=== PATIENT | female | born 1945 ===

== ENCOUNTER 2022-08-29 06:26 | Day surgery (SDC) | payer MEDICARE, SELFPAY ==
--- NOTE | 2022-08-29 06:25 | ANES.PREOP_ITS ---
General Info Date of Service Date Performed: 08/29/22 Height: 5 ft 2 in Weight: 74 kg Body Mass Index (BMI): 29.8 Surgical Procedure: Operation Date: 08/29/22 07:40 Proposed Procedure Side Surgeon p Cataract Extraction with IOL Implant Right Saul Manzano MD Meds Allergies and Home Medications Allergies Allergy/AdvReac Type Severity Reaction Status Date / Time No Known Allergies Allergy Unverified 08/29/22 07:02 Home Medication Medication Instructions Recorded acetaminophen 325 mg tablet 325 mg PO Q6H PRN 08/25/22 amlodipine 2.5 mg tablet 2.5 mg PO DAILY 08/25/22 amlodipine 5 mg tablet 5 mg PO DAILY 08/25/22 ascorbic acid (vitamin C) 500 mg 500 mg PO DAILY 08/25/22 tablet (Vitamin C) aspirin 325 mg tablet 325 mg PO DAILY 08/25/22 cholecalciferol (vitamin D3) 50 50 mcg PO DAILY 08/25/22 mcg (2,000 unit) tablet (Vitamin D3) docusate sodium 100 mg tablet 200 mg PO BID 08/25/22 omega-3 fatty acids 1 cap PO DAILY 08/25/22 oxycodone 5 mg tablet 5 mg PO Q6H PRN 08/25/22 rosuvastatin 10 mg tablet 10 mg PO DAILY 08/25/22 naproxen sodium 220 mg tablet 220 mg PO Q8H 08/29/22 (Aleve) Current Visit Medications: Current Medications Generic Name Dose Route Start Last Admin Trade Name Freq PRN Reason Stop Dose Admin Acetaminophen 1,000 mg 08/29/22 06:00 Acetaminophen 500 Mg Tab PO Q4H PRN PRN Miscellaneous Medication 0 ml 08/29/22 06:00 Prednisolone 1%, Moxifloxacin 0.5%, Nepafenac 0.1% 5ml Btl OD DIRECTED YENNY Miscellaneous Medication 0 ml 08/29/22 06:00 Tropicam./Phenyleph. (1/2.5%) 5 Ml Btl OD DIRECTED YENNY Tetracaine HCl 0 ml 08/29/22 06:00 Tetracaine 0.5% 4 Ml Btl OD DIRECTED YENNY PFSH Active Problems Active Problems: Problem Status Onset Code Nuclear sclerotic cataract of right eye H25.11 Medical History Medical History Arthritis of right knee Hypertension Inflamed seborrheic keratosis Surgical History Surgical History (Updated 08/29/22 @ 07:01 by Shalonda Masters) History of excision of lesion [facility] of tonsillectomy History of tubal ligation Uterine polyp Excision Tobacco Smoking/Tobacco Use Status: Never Alcohol Alcohol Intake: never Substance Use Substance use: Never Substance use type: does not use Vital Signs and Lab Results Vital Signs Most Recent Vital Signs in EMR: Temp Pulse Resp BP Pulse Ox 36.7 C 65 16 155/68 H 99 08/29/22 07:07 08/29/22 07:07 08/29/22 07:07 08/29/22 07:07 08/29/22 07:07 Lab Results Blood Type / Crossmatch: No Data to Display Complete Blood Count: No Data to Display Complete Metabolic Panel: No Data to Display Liver Function Panel: No Data to Display Coagulation Panel: No Data to Display Cardiac Panel: No Data to Display Arterial Blood Gas: No Data to Display Venous Blood Gas: No Data to Display Pancreas Panel: No Data to Display Thyroid Panel: No Data to Display Infectious Disease: No Data to Display Blood Cultures: No Data to Display Toxicology Panel: No Data to Display Anesthesia Assessment and Plan Anesthesia History Personal History: No History of Anesthesia Complications Family History: No Family History of Anesthesia Complications Exercise Tolerance Exercise Tolerance: Metabolic Equivalents>4 Cardiac & Pulmonary Exam Cardiac Exam: Heart Murmur Present Pulmonary Exam: Clear Bilateral Breath Sounds Implantable Cardiac Device Does patient have a Pacemaker or an ICD?: No Airway Exam Known Difficult Airway: No Mallampati Class: 3 Mouth Opening: Normal (> 3cm) Thyromental Distance: Greater than 3 cm Neck Range of Motion: Limited ROM Neck Circumference: Normal Teeth Condition: Normal Dentition ASA Classification ASA Score: ASA 3 Emergency Case?: No NPO Status NPO Status: NPO Clears >2 hours, Solids >8 hours Anesthesia Plan Resuscitation Status: Full Code Anesthesia Technique: MAC Anesthesia Airway Planned: Natural Airway Monitors Used: Standard Monitors Preoperative Comments:: 77 f for cataract removal. Sig PMHx: HTN (amlodipine), never smoker, never EtOH. Has decent murmur, denies having an echo or workup for it recently. She did just recently have a TKA without issues. I discussed with her that she should have an ECHO if she has not prior to any additional general anesthetics that she may have.
[2022-08-29] MEDS: Tropicam./Phenyleph. (1/2.5%) 5 ML BTL OD ×3 (07:00→07:16)
[2022-08-29 07:07] VITALS: BP 155/68; PULSE 65; RESP 16; TEMP 36.7; O2SAT 99
[2022-08-29 07:29] VITALS: BMI 29.8
[2022-08-29] MEDS: Lidocaine 1% Pres-Free 5 ML VIAL (07:37)
[2022-08-29] MEDS: Balanced Salt Soln.-PLUS 500 ML BAG (07:40)
[2022-08-29] MEDS: Lidocaine 2% Jelly 6 ML SYR (07:41)
[2022-08-29] MEDS: Povidone-Iodine Ophth 30 ML BTL (07:41)
[2022-08-29] MEDS: Duovisc Viscoelastic System EACH 1 EACH (07:41)
[2022-08-29] MEDS: Tetracaine 0.5% 4 ML BTL OD (07:43)
[2022-08-29 08:02] VITALS: BP 146/73; PULSE 70; RESP 16; TEMP 36.6; O2SAT 100
--- NOTE | 2022-08-29 08:02 | W.PM.DSUDISC ---
Date of service: 08/29/22 Time of Service: 08:03 Discharge Plan Disposition Patient Disposition: Home Condition: Good Discharge Details Attending Provider: Saul Manzano Primary Care Provider: Holden Rebollar Home Meds and New Rx's Prescriptions: No Action acetaminophen 325 mg Tablet 325 mg PO Q6H PRN aspirin 325 mg Tablet 325 mg PO DAILY amlodipine 2.5 mg Tablet 2.5 mg PO DAILY amlodipine 5 mg Tablet 5 mg PO DAILY ascorbic acid (vitamin C) [Vitamin C] 500 mg Tablet 500 mg PO DAILY docusate sodium 100 mg Tablet 200 mg PO BID oxycodone 5 mg Tablet 5 mg PO Q6H PRN Fish Oil Capsule 1 cap PO DAILY rosuvastatin 10 mg Tablet 10 mg PO DAILY cholecalciferol (vitamin D3) [Vitamin D3] 50 mcg (2,000 unit) Tablet 50 mcg PO DAILY naproxen sodium [Aleve] 220 mg Tablet 220 mg PO Q8H Discharge Instructions Stand Alone Forms: Post-op Topical Cataract, Neville Gee (DSU) Discharge Orders Discharge Orders: Discharge Order (Routine); Ordered 08/29/22 Ordered By: Saul Manzano DS: Diagnosis Discharge Diagnosis (1) Nuclear sclerotic cataract of right eye: Status: Resolved
--- NOTE | 2022-08-29 08:03 | ROE_ITS ---
Date of service: 08/29/22 Time of Service: 08:03 Operative Note Operative Note DATE OF PROCEDURE: 08/29/22 PRE-OP DIAGNOSIS: Nuclear cataract, right eye POST-OP DIAGNOSIS: same PROCEDURE: Cataract extraction using phacoemulsification with intraocular lens implant, right eye SURGEON: Saul Manzano ANESTHESIA TYPE: Local By Surgeon and MAC Refer to Anesthesia Record ESTIMATED BLOOD LOSS: 0 PATHOLOGY: none sent COMPLICATIONS: None Patient was transported to: same day Patient's condition: stable Implants: Clovis & Clovis/ELKE Tecnis [id number] Indications: Progressive visual loss due to cataract, right eye Procedure Description: CATARACT SURGERY OPERATIVE REPORT PREOPERATIVE DIAGNOSIS: 1. Dense nuclear cataract, right eye POSTOPERATIVE DIAGNOSIS: Same OPERATION: 1. Cataract extraction using phacoemulsification with posterior chamber intraocular lens implant, right eye. IOL: IOL Cotton Tier/Model: Clov[employer] & Clovis / ELKE Tecnis [id number] IOL Power: + 20.5 diopters IOL Serial Number: [id number] Optic Diameter: 6.0mm Haptic/Overall Diameter: 13.0mm PHACO INFO: LamontStarMaker Interactiveon Vision System with OZil and Active Fluidics Cumulative Dispersed Energy (CDE): 30.18 seconds SURGEON: Saul Manzano MD, ELVIE ANESTHESIA: Monitored [facility] (MAC), with local sub-tenon's anesthetic infiltration COMPLICATIONS: None SPECIMENS: None INDICATIONS FOR PROCEDURE: The patient is a 77-year-old lady with history of diminished visual acuity in her right eye secondary to the development of dense nuclear cataract. The option of cataract surgery was offered to the patient and she felt she was symptomatic enough that she wished to proceed. PROCEDURE: The correct surgical eye was identified and marked as the right eye and the pupil was dilated in the preoperative area using mydriatics and cycloplegics. The dilated pupil size was 6.0 mm. The patient elected to proceed without oral sedation. The patient was brought to the operating room where cardiopulmonary monitoring was instituted and surgical time-out was performed, confirming the correct operative eye and IOL power. Topical anesthesia was administered and ophthalmic povidone-iodine 5% was instilled into the conjunctival fornices. Lidocaine gel was applied to the cornea and the liz-ocular area was prepped with Betadine 10% solution and draped in the usual sterile fashion for intraocular surgery, including an aperture drape. A Tegaderm transparent film dressing was cut in half and used to cover the lashes and lid margins. Care was taken to sequester the lashes and lid margins under the Tegaderm dressing. A lid speculum was placed between the lids of the operative eye and the Lamont LuxOR Revalia operating microscope was maneuvered into position. Donovan scissors were then used to make a conjunctival buttonhole approximately 6mm posterior to the limbus in the inferonasal quadrant. Blunt dissection was carried out to expose bare sclera, and a blunt-tipped sub-tenon?s anesthesia cannula was introduced and passed posteriorly along the globe where non- preserved plain lidocaine was injected into posterior sub-Tenon?s space. A sideport knife was used to make a paracentesis port inferotemporally. Intraocular phenylephrine/lidocaine was injected into the anterior chamber. The anterior chamber was filled with viscoelastic. A keratome knife was used to construct a 2-plane near-clear corneal tunnel extending 2.0mm into clear cornea superiortemporally. A flap was raised on the anterior capsule and capsulorhexis forceps were used to complete a continuous curvilinear capsulorhexis of 5.0 mm. Balanced salt solution was then used to perform cortical cleaving hydrodissection and nuclear hydrodelineation until the lens could be freely rotated within the capsular bag. The lens nucleus was then disassembled and removed within the capsular bag and iris plane using phacoemulsification. Residual cortical material was removed using the I/A handpiece. The posterior capsule was carefully polished to remove as much residual lens epithelial cells as safely possible. The capsular bag was then inflated and the anterior chamber deepened with viscoelastic. The lens implant described above was inserted into the capsular bag using the ELKE [place] Injector. A Kuglen hook was used to dial the IOL into position. Residual viscoelastic was then removed first from posterior to the IOL, then from the anterior chamber using the I/A handpiece. The lens implant was noted to center nicely within the capsular bag. The incisions were stromally hydrated, and the anterior chamber was reformed using BSS. Then 0.5cc of moxifloxacin 1.0mg/ml were injected into the capsular bag and anterior chamber. The incisions were checked with a Weck spear and found to be secure. Several drops of ophthalmic povidone-iodine 5% were then applied to the eye followed by two drops of Imprimis combination prednisolone/moxifloxacin/nepafenac solution. The drapes were removed and a clear plastic protective eye shield was placed over the eye. The patient was then returned to Same Day Surgery in stable condition.
--- NOTE | 2022-08-29 08:21 | W.ANESPOSTOP ---
Postoperative Evaluation Date, Time and Location Date Performed: 08/29/22 Time Performed: 08:15 Patient Location: Day Surgery Unit Vital Signs Most Recent Imported Vital Signs: Most Recent Vital Signs Temp Pulse Resp BP Pulse Ox 36.6 C 70 16 146/73 H 100 08/29/22 08:02 08/29/22 08:02 08/29/22 08:02 08/29/22 08:02 08/29/22 08:02 Pain Score Most Recent Pain Score: Most Recent Pain Score Pain Level 0 08/29/22 08:02 Assessment Mental Status: Awake (Alert & Oriented to Patient Baseline) Airway and Respiratory Function: Patent airway with normal (patient baseline) respiratory exam Cardiovascular Function: Hemodynamically Stable Hydration Status: Adequately Hydrated Nausea & Vomiting: No Nausea or Vomiting Pain: Pt. Denies Any Pain Peripheral Nerve Block: Patient did not receive a nerve block
== END 2022-08-29 08:30 | disposition home or self-care (01) ==
LOC: SUR 06:28
PROVIDERS: PCP Nurse Practitioner Family; Visit Provider Ophthalmology
PROC: (CPT 66984; principal; 2022-08-29 07:30)
DX: H25.11 Age-related nuclear cataract, right eye (principal); H26.8 Other specified cataract
CPT/HCPCS: 66984; V2632

== ENCOUNTER 2022-09-05 06:55 | Day surgery (SDC) | payer OTHER, SELFPAY ==
[2022-09-05] MEDS: Tropicam./Phenyleph. (1/2.5%) 5 ML BTL OS ×3 (07:27→07:45)
[2022-09-05 07:29] VITALS: BP 162/84; PULSE 63; RESP 18; TEMP 36.3; O2SAT 100
--- NOTE | 2022-09-05 08:18 | W.ANESPRE ---
General Info Date of Service Date Performed: 09/05/22 Height: 5 ft 2 in Weight: 74.8 kg Body Mass Index (BMI): 30.1 Surgical Procedure: Operation Date: 09/05/22 08:40 Proposed Procedure Side Surgeon p Cataract Extraction with IOL Implant Left Saul Manzano MD Meds Allergies and Home Medications Allergies Allergy/AdvReac Type Severity Reaction Status Date / Time No Known Allergies Allergy Unverified 09/05/22 07:10 Home Medication Medication Instructions Recorded acetaminophen 325 mg tablet 325 mg PO Q6H PRN 08/25/22 amlodipine 2.5 mg tablet 2.5 mg PO DAILY 08/25/22 amlodipine 5 mg tablet 5 mg PO DAILY 08/25/22 ascorbic acid (vitamin C) 500 mg 500 mg PO DAILY 08/25/22 tablet (Vitamin C) aspirin 325 mg tablet 325 mg PO DAILY 08/25/22 cholecalciferol (vitamin D3) 50 50 mcg PO DAILY 08/25/22 mcg (2,000 unit) tablet (Vitamin D3) docusate sodium 100 mg tablet 200 mg PO BID 08/25/22 omega-3 fatty acids 1 cap PO DAILY 08/25/22 oxycodone 5 mg tablet 5 mg PO Q6H PRN 08/25/22 rosuvastatin 10 mg tablet 10 mg PO DAILY 08/25/22 naproxen sodium 220 mg tablet 220 mg PO Q8H 08/29/22 (Aleve) Current Visit Medications: Current Medications Generic Name Dose Route Start Last Admin Trade Name Freq PRN Reason Stop Dose Admin Acetaminophen 1,000 mg 09/05/22 06:00 Acetaminophen 500 Mg Tab PO Q4H PRN PRN Miscellaneous Medication 0 ml 09/05/22 06:00 Prednisolone 1%, Moxifloxacin 0.5%, Nepafenac 0.1% 5ml Btl OS DIRECTED YENNY Miscellaneous Medication 0 ml 09/05/22 06:00 09/05/22 07:45 Tropicam./Phenyleph. (1/2.5%) 5 Ml Btl OS 1 drp DIRECTED YENNY Administration Tetracaine HCl 0 ml 09/05/22 06:00 Tetracaine 0.5% 4 Ml Btl OS DIRECTED YENNY PFSH Active Problems Active Problems: Problem Status Onset Code Nuclear sclerotic cataract of right eye H25.11 Nuclear sclerotic cataract of left eye H25.12 Medical History Medical History Arthritis of right knee Hypertension Inflamed seborrheic keratosis Medical History Comments:: notable hear murmur Surgical History Surgical History (Updated 09/05/22 @ 07:10 by Shalonda Masters) H/O cataract extraction History of excision of lesion [facility] of tons[facility] History of tubal ligation Uterine polyp Excision Tobacco Smoking/Tobacco Use Status: Never Alcohol Alcohol Intake: never Substance Use Substance use: Never Substance use type: does not use Vital Signs and Lab Results Vital Signs Most Recent Vital Signs in EMR: Most Recent Vital Signs Temp Pulse Resp BP Pulse Ox 36.3 C L 63 18 162/84 H 100 09/05/22 07:29 09/05/22 07:29 09/05/22 07:29 09/05/22 07:29 09/05/22 07:29 Lab Results Blood Type / Crossmatch: No Data to Display Complete Blood Count: No Data to Display Complete Metabolic Panel: No Data to Display Liver Function Panel: No Data to Display Coagulation Panel: No Data to Display Cardiac Panel: No Data to Display Arterial Blood Gas: No Data to Display Venous Blood Gas: No Data to Display Pancreas Panel: No Data to Display Thyroid Panel: No Data to Display Infectious Disease: No Data to Display Blood Cultures: No Data to Display Toxicology Panel: No Data to Display Anesthesia Assessment and Plan Anesthesia History Personal History: No History of Anesthesia Complications Family History: No Family History of Anesthesia Complications Exercise Tolerance Exercise Tolerance: Metabolic Equivalents>4 Pertinent Negatives Pertinent Negatives: No Symptoms of GERD, No Major Cardiovascular Symptoms or Complaints (Murmur ), No Major Pulmonary Symptoms or Complaints and No History of CVA/TIA Cardiac & Pulmonary Exam Cardiac Exam: Normal S1/S2 Heart Sounds Pulmonary Exam: Clear Bilateral Breath Sounds Implantable Cardiac Device Does patient have a Pacemaker or an ICD?: No Airway Exam Known Difficult Airway: No Mallampati Class: 3 Mouth Opening: Normal (> 3cm) Thyromental Distance: Greater than 3 cm Neck Range of Motion: Limited ROM Neck Circumference: Normal Teeth Condition: Normal Dentition ASA Classification ASA Score: ASA 2 Emergency Case?: No NPO Status NPO Status: NPO Clears >2 hours, Solids >8 hours Anesthesia Plan Resuscitation Status: Full Code Anesthesia Technique: MAC Anesthesia Airway Planned: Natural Airway Monitors Used: Standard Monitors Preoperative Comments:: Pt has some concerns that anesthesia may have contributed to Mother?s and Grandfathers's Dementia Discussed with pt about need for an ECHOCARDIOGRAM if general anesthesia is necessary in the future
[2022-09-05 08:22] VITALS: BMI 30.1
[2022-09-05] MEDS: Balanced Salt Soln.-PLUS 500 ML BAG (08:39)
[2022-09-05] MEDS: Duovisc Viscoelastic System EACH 1 EACH (08:39)
[2022-09-05] MEDS: Tetracaine 0.5% 4 ML BTL OS (08:39)
[2022-09-05] MEDS: Lidocaine 2% Jelly 6 ML SYR (08:40)
[2022-09-05] MEDS: Povidone-Iodine Ophth 30 ML BTL (08:42)
[2022-09-05 09:05] VITALS: BP 148/70; PULSE 62; RESP 16; TEMP 36.7; O2SAT 100
--- NOTE | 2022-09-05 09:05 | W.PM.DSUDISC ---
Date of service: 09/05/22 Time of Service: 09:05 Discharge Plan Disposition Patient Disposition: Home Discharge Details Attending Provider: Saul Manzano Primary Care Provider: Holden Rebollar Home Meds and New Rx's Prescriptions: No Action acetaminophen 325 mg Tablet 325 mg PO Q6H PRN aspirin 325 mg Tablet 325 mg PO DAILY amlodipine 2.5 mg Tablet 2.5 mg PO DAILY amlodipine 5 mg Tablet 5 mg PO DAILY ascorbic acid (vitamin C) [Vitamin C] 500 mg Tablet 500 mg PO DAILY docusate sodium 100 mg Tablet 200 mg PO BID oxycodone 5 mg Tablet 5 mg PO Q6H PRN Fish Oil Capsule 1 cap PO DAILY rosuvastatin 10 mg Tablet 10 mg PO DAILY cholecalciferol (vitamin D3) [Vitamin D3] 50 mcg (2,000 unit) Tablet 50 mcg PO DAILY naproxen sodium [Aleve] 220 mg Tablet 220 mg PO Q8H Discharge Instructions Stand Alone Forms: Post-op Topical Cataract, Neville Gee (DSU) Discharge Orders Discharge Orders: Discharge Order (Routine); Ordered 09/05/22 Ordered By: Saul Manzano DS: Diagnosis Discharge Diagnosis (1) Nuclear sclerotic cataract of left eye: Status: Resolved
--- NOTE | 2022-09-05 09:06 | ROE_ITS ---
Date of service: 09/05/22 Time of Service: 09:06 Operative Note Operative Note DATE OF PROCEDURE: 09/05/22 PRE-OP DIAGNOSIS: Nuclear cataract, left eye POST-OP DIAGNOSIS: same PROCEDURE: Cataract extraction using phacoemulsification with intraocular lens implant, left eye SURGEON: Saul Manzano ANESTHESIA TYPE: Local By Surgeon and MAC Refer to Anesthesia Record PATHOLOGY: none sent COMPLICATIONS: None Patient was transported to: same day Patient's condition: stable Implants: Clovis [employer] Clovis / [employer] Tecnis [id number] Indications: Progressive decreased vision due to cataract, left eye Procedure Description: CATARACT SURGERY OPERATIVE REPORT PREOPERATIVE DIAGNOSIS: 1. Nuclear cataract, left eye POSTOPERATIVE DIAGNOSIS: Same OPERATION: 1. Cataract extraction using phacoemulsification with posterior chamber intraocular lens implant, left eye. IOL: IOL [employer] [place]/Model: Clovis & Clovis / ELKE Tecnis ZCB00 IOL Power: + 21.0 diopters IOL Serial Number: [id number] Optic Diameter: 6.0 mm Haptic/Overall Diameter: 13.0 mm PHACO INFO: Lamont Nubimetricsurion Vision System with OZil and Active Fluidics Cumulative Dispersed Energy (CDE): 24.65 seconds SURGEON: Saul Manzano MD, ELVIE ANESTHESIA: Monitored A [facility] (MAC), with local sub-tenon's anesthetic infiltration COMPLICATIONS: None SPECIMENS: None INDICATIONS FOR PROCEDURE: The patient is a 77-year-old lady with history of diminished visual acuity in her left eye secondary to the development of significant nuclear cataract. She has previously undergone cataract surgery in her right eye and is now doing well postoperatively. She now presents for cataract surgery in her left eye. PROCEDURE: The correct surgical eye was identified and marked as the left eye and the pupil was dilated in the preoperative area using mydriatics and cycloplegics. The dilated pupil size was 6.0 mm. The patient elected to proceed without oral sedation. The patient was brought to the operating room where cardiopulmonary monitoring was instituted and surgical time-out was performed, confirming the correct operative eye and IOL power. Topical anesthesia was administered and ophthalmic povidone-iodine 5% was insti lled into the conjunctival fornices. Lidocaine gel was applied to the cornea and the liz-ocular area was prepped with Betadine 10% solution and draped in the usual sterile fashion for intraocular surgery, including an aperture drape. A Tegaderm transparent film dressing was cut in half and used to cover the lashes and lid margins. Care was taken to sequester the lashes and lid margins under the Tegaderm dressing. A lid speculum was placed between the lids of the operative eye and the Lamont LuxOR Revalia operating microscope was maneuvered into position. Donovan scissors were then used to make a conjunctival buttonhole approximately 6mm posterior to the limbus in the inferonasal quadrant. Blunt dissection was carried out to expose bare sclera, and a blunt-tipped sub-tenon?s anesthesia cannula was introduced and passed posteriorly along the globe where non- preserved plain lidocaine was injected into posterior sub-Tenon?s space. A sideport knife was used to make a paracentesis port superiorly/superiortemporally. Intraocular phenylephrine/lidocaine was injected int the anterior chamber.. The anterior chamber was filled with viscoelastic. A keratome knife was used to construct a 2-plane near-clear corneal tunnel extending 2.0mm into clear cornea temporally. A flap was raised on the anterior capsule and capsulorhexis forceps were used to complete a continuous curvilinear capsulorhexis of 5.0 mm. Moderate generalized zonular laxity was noted. Balanced salt solution was then used to perform cortical cleaving hydrodissection and nuclear hydrodelineation until the lens could be freely rotated within the capsular bag. The lens nucleus was then disassembled and removed within the capsular bag and iris plane using phacoemulsification the lens nucleus was noted to be quite dense. Additional Viscoat was injected intermittently to protect the corneal endothelium.. Residual cortical material was removed using the 45-degree angled silicone I/A tip with 0.3mm port. The posterior capsule was carefully polished to remove as much residual lens epithelial cells as safely possible. The capsular bag was then inflated and the anterior chamber deepened with viscoelastic. The lens implant described above was inserted into the capsular bag using the ELKE [place] Injector. A Kuglen hook was used to dial the IOL into position. Residual viscoelastic was then removed first from posterior to the IOL, then from the anterior chamber using the I/A handpiece. The lens implant was noted to center nicely within the capsular bag. The incisions were stromally hydrated, and the anterior chamber was reformed using BSS. Then 0.5cc of moxifloxacin 1.0mg/ml were injected into the capsular bag and anterior chamber. The incisions were checked with a Weck spear and found to be secure. Several drops of ophthalmic povidone-iodine 5% were then applied to the eye followed by two drops of Imprimis combination prednisolone/moxifloxacin/nepafenac solution. The drapes were removed and a clear plastic protective eye shield was placed over the eye. The patient was then returned to Same Day Surgery in stable condition.
--- NOTE | 2022-09-05 09:29 | W.ANESPOSTOP ---
Postoperative Evaluation Date, Time and Location Date Performed: 09/05/22 Time Performed: 09:04 Patient Location: Day Surgery Unit Vital Signs Most Recent Imported Vital Signs: Most Recent Vital Signs Temp Pulse Resp BP Pulse Ox 36.7 C 62 16 148/70 H 100 09/05/22 09:05 09/05/22 09:05 09/05/22 09:05 09/05/22 09:05 09/05/22 09:05 Most Recent Manually Entered Vital Signs: Adult Blood Pressure: 148/70 Heart Rate: 62 Respirations: 16 Oxygen Saturation (%): 100 Temperature (C): 36.7 C Pain Score (0-10 Scale): 0 Pain Score Most Recent Pain Score: Most Recent Pain Score Pain Level 0 09/05/22 09:05 Assessment Mental Status: Awake (Alert & Oriented to Patient Baseline) Airway and Respiratory Function: Patent airway with normal (patient baseline) respiratory exam Cardiovascular Function: Hemodynamically Stable Hydration Status: Adequately Hydrated Nausea & Vomiting: No Nausea or Vomiting Pain: Pt. Denies Any Pain Peripheral Nerve Block: Patient did not receive a nerve block
[2022-09-05 09:30] VITALS: BP 148/70; PULSE 62; RESP 16; TEMPC 36.7; O2SAT 100
== END 2022-09-05 09:25 | disposition home or self-care (01) ==
LOC: SUR 06:55
PROVIDERS: PCP Nurse Practitioner Family; Visit Provider Ophthalmology
PROC: (CPT 66984; principal; 2022-09-05 08:30)
DX: H25.12 Age-related nuclear cataract, left eye (principal); I10 Essential (primary) hypertension
CPT/HCPCS: 66984; V2632